=== PATIENT | female | born 1990 | race Caucasian/White ===

== ENCOUNTER 2021-05-26 10:32 | Outpatient (CLI) | payer OTHER | END 2021-05-26 11:23 | disposition home or self-care (01) | LOC: NST 10:32 | PROVIDERS: ATTEND Obstetrics & Gynecology | DX: Z34.82 Encounter for supervision of other normal pregnancy, second trimester (principal) ==

== ENCOUNTER 2021-05-30 10:08 | Inpatient (IN) | payer OTHER ==
[~2021-05-30] VITALS: Ht 167.6 cm; Wt 98.0 kg
[2021-05-30] MEDS ORDERED: PRENATAL TABLE1 EAC3 (11:48)
[2021-05-30] MEDS ORDERED: PROGESTERONE200 MG (15:06)
== END 2021-05-31 11:52 | disposition home or self-care (01) | DRG 819 ==
LOC: LDR 10:08
PROVIDERS: ADMIT Obstetrics & Gynecology; ATTEND Obstetrics & Gynecology
PROC: 4A1HXCZ Monitoring of Products of Conception, Cardiac Rate, External Approach (ICD-10-PCS; 2021-05-30)
PROC: 0UVC7ZZ Restriction of Cervix, Via Natural or Artificial Opening (ICD-10-PCS; principal; 2021-05-30 12:14)
PROC: BU4CZZZ Ultrasonography of Uterus and Ovaries (ICD-10-PCS; 2021-05-31)
PROC: BY4FZZZ Ultrasonography of Third Trimester, Single Fetus (ICD-10-PCS; 2021-05-31)
DX: O34.32 Maternal care for cervical incompetence, second trimester (principal); Z3A.20 20 weeks gestation of pregnancy; Z20.822 Contact with and (suspected) exposure to COVID-19; O26.842 Uterine size-date discrepancy, second trimester

== ENCOUNTER 2021-07-21 09:30 | Outpatient (CLI) | payer OTHER ==
[~2021-07-21 09:30] MED LIST: PRENATAL TABLE1 EAC3; PROGESTERONE200 MG
== END 2021-07-21 10:26 | disposition home or self-care (01) ==
LOC: NST 09:30
PROVIDERS: ATTEND Obstetrics & Gynecology
DX: Z34.82 Encounter for supervision of other normal pregnancy, second trimester (principal)

== ENCOUNTER 2021-09-29 17:43 | Inpatient (IN) | payer OTHER ==
[~2021-09-29] VITALS: Ht 167.6 cm; Wt 102.1 kg
== END 2021-10-09 12:59 | disposition home or self-care (01) | DRG 768 ==
LOC: LDR 10-07 03:41 → OB/GYN 10-07 13:22 → LDR 10-14 17:21
PROVIDERS: ADMIT Obstetrics & Gynecology; ATTEND Obstetrics & Gynecology
PROC: 10E0XZZ Delivery of Products of Conception, External Approach (ICD-10-PCS; principal; 2021-10-07)
PROC: 0UQC7ZZ Repair Cervix, Via Natural or Artificial Opening (ICD-10-PCS; 2021-10-07)
PROC: 0W8NXZZ Division of Female Perineum, External Approach (ICD-10-PCS; 2021-10-07)
PROC: 4A1HXCZ Monitoring of Products of Conception, Cardiac Rate, External Approach (ICD-10-PCS; 2021-10-07)
DX: O71.3 Obstetric laceration of cervix (principal); Z37.0 Single live birth; Z3A.39 39 weeks gestation of pregnancy; Z20.822 Contact with and (suspected) exposure to COVID-19